=== PATIENT | male | born 1975 | race Caucasian/White ===

== ENCOUNTER 2017-11-22 21:29 | Emergency (ER) | payer BC ==
[~2017-11-22] VITALS: Ht 182.9 cm; Wt 126.9 kg
[~2017-11-22 21:29] MED LIST: GAS-X; ZFRODT4 SL; [UNRECOGNIZED DRUG - OTHER]
[2017-11-22 21:36] VITALS: TEMP 37.3; Ht 182.9 cm; Wt 126.9 kg
[2017-11-22] MEDS ORDERED: ONDANSETRON INJ 2 MG/ML 2 ML VIAL IV STA (21:51)
[2017-11-22] MEDS ORDERED: FAMOTIDINE 20MG/5ML IV PUSH IV STA (21:51)
[2017-11-22] MEDS ORDERED: SODIUM CHLORIDE 0.9% 1000ML 2,000 ML IV STA (21:51)
[2017-11-22] MEDS ORDERED: MoRPHine SULFATE 4 MG/ML 1 ML CARP\\VIAL IV STA (21:51)
[2017-11-22] MEDS ORDERED: HYG/25 PO (22:03)
[2017-11-22 22:19] LABS: BASO % 0.2 %; BASO ABS # 0.02 K/uL (0-0.2); COMPLETE YES; HEMATOCRIT 48.2 % (42-52); IG% 0.4 %; LYMPH % 7.8 %; LYMPH ABS # 0.73 K/uL (1.2-3.4); MEAN CELL VOLUME 89.8 fL (80-100); MEAN CORPUSCULAR HEMOGLOBIN 33.1 pg (25-34); MEAN CORPUSCULAR HGB CONC 36.9 g/dl (32-36); MEAN PLATELET VOLUME 11.5 fL (7.4-10.4); MONO % 5.9 %; NEUT % 85.7 %; PLATELET COUNT 148 K/uL (130-400); RED BLOOD COUNT 5.37 M/uL (4.7-6.1); WHITE BLOOD COUNT 9.34 K/uL (4.8-10.8)
[2017-11-22 22:52] LABS: BUN/CREATININE RATIO 17.1 (10-20); CALCIUM 8.2 mg/dl (8.5-10.1); CREATININE 1.31 mg/dl (0.60-1.40); POTASSIUM 2.9 mmol/L (3.5-5.1)
[2017-11-22] MEDS ORDERED: POTASSIUM CHLORIDE 10 MEQ TABCR PO STA (22:59)
[2017-11-22] MEDS ORDERED: ONDANSETRON HOME PACK 4MG OD TAB PO ONE (23:00)
[2017-11-22] MEDS ORDERED: EMPTY 8 DRAM VIAL ONE (23:05)
[2017-11-22] MEDS ORDERED: ONDA4TAB10 SL (23:10)
--- NOTE | 2017-11-22 23:11 | EMERGENCY ROOM VISIT NOTE ---
ED Visit Note First contact with patient: 21:42 CHIEF COMPLAINT: Vomiting and diarrhea 26 hours HISTORY OF PRESENT ILLNESS: Patient is a 42-year-old white male who presents to the emergency department accompanied by his girlfriend for evaluation of a vomiting and diarrheal illness that started 24 hours ago. Patient reports that his 7-year-old daughter became ill first with vomiting and diarrhea on 11/20. Her symptoms lasted about 24 hours. He reports that he developed similar symptoms around 8 PM last evening. He developed a fairly forceful, repetitive vomiting and diarrhea. At one point he reports that he was vomiting every 15 minutes. Vomiting has tapered off slightly, he is still nauseous and has dry heaves on occasion. Diarrhea is loose and watery, now is more gas and just mucus. He notes a stabbing supraumbilical abdominal pain, at the site of where he had a hernia repair 2, and generalized diffuse abdominal discomfort and bloating. He rates his discomfort and 8/10. He was only able to drink one bottle of Gatorade today. Girlfriend states that he tried to drink fluids, but then vomited them back up. He denies any recent antibiotic use, foreign travel , unusual food or water consumption or foodhandling activities. He has well water as a source at home. He denies melena, hematochezia or hematemesis. He denies urinary symptoms. He did not check his temperature with a thermometer. He reports that he feels dehydrated. REVIEW OF SYSTEMS: Review of systems as per HPI. All other systems reviewed were negative. 10 systems reviewed. PMH: Electronic medical records are reviewed and summarized as above/below. See Problem List. SOCIAL HISTORY: Patient lives at home with his girlfriend and children. Employed as a teacher. Nonsmoker, denies alcohol use.. PHYSICAL EXAM: Vital Signs: Reviewed Nurse's notes. CONSTITUTIONAL: Patient is an ill, uncomfortable appearing 42-year-old white male who is awake and alert and in mild distress due to his stated complaint. He is noted to be tachycardic in triage. EYES: Pupils equal, round, reactive to light and accommodation. EOMs intact without nystagmus. Sclera are anicteric. ENT: Tympanic membranes intact, with normal landmarks. External canals are clear. Oral and nasopharynx are clear. Mucous membranes are dry, no lesions, tongue and gums appear normal. NECK: No bruits auscultated. Supple without lymphadenopathy. No thyromegaly. No meningeal signs. Full active range of motion without discomfort. CARDIOVASCULAR: Tachycardic rate and rhythm, with normal S1 and S2, no murmur or gallop or rub is heard. No carotid bruits auscultated. No JVD. Peripheral pulses easily palpable. RESPIRATORY: Breath sounds equal and clear to auscultation without wheezes, rales, or rhonchi heard. Full and equal chest expansion without accessory muscle use or retractions. ABDOMEN: Bowel sounds are present. Well-healed supraumbilical surgical incision noted. Abdomen is soft, nondistended, mildly tender in the epigastric region, without guarding, rebound or rigidity. There is no localized pain in the right lower quadrant. No palpable masses or hernia noted. INTEGUMENTARY: No lesions or rash, normal skin turgor. LYMPH: No lymphadenopathy. EMERGENCY DEPARTMENT COURSE: The patient was seen and evaluated as above. Old records were reviewed. IV lock was initiated and laboratory studies were collected. He was medicated with Zofran 4 mg IV, morphine 4 mg IV and Pepcid 20 mg IV. He was given a 2 L bolus of normal saline solution. Urine sample was collected, dipped and was clear. Laboratory studies noted a normal white count. Electrolytes noted sodium 136, potassium low at 2.9, chloride 101, convex and 25, BUN and creatinine 22 and 1.3. Transaminases are not elevated. Lipase is normal. The patient was reassessed. The first liter of IV fluid was almost completed, and a second liter was hung. He reported good relief of his pain with the IV medications, states that he was actually able to follow sleep for a little bit. He was tolerating ice chips. His tachycardia had improved slightly and he was in the 110s. He rested comfortably, and had no further vomiting or diarrhea in the emergency department. Laboratory studies were reviewed with the patient. He is noted to be hypokalemic with a potassium of 2.9. I feel that he is a good candidate for oral replacement, he was given 40 mEq in the emergency department prior to discharge, and an additional dose of 40 mEq to take tomorrow morning. He was also encouraged to eat potassium rich foods for the next couple of days, until he resumes a normal diet. I suspect the patient's illness is viral in nature, as his daughter was ill with very similar symptoms just 24 hours prior. He has a benign abdominal exam and is afebrile. Conservative care measures were discussed. He was encouraged to follow a clear liquid diet, and advance as tolerated. He was welcome to return to the emergency department for worsening symptoms, otherwise can follow up with his primary care provider as an outpatient for recheck this week. Differential diagnoses also entertained included infectious versus inflammatory colitis/enteritis, food borne illness, bowel obstruction, GERD, gastritis, esophagitis, pancreatitis, acute cholecystitis, among others. Medication reconciliation: I attest that I have personally reviewed the patient' s current medication list. Blood pressure screening : Patient was found to have normal blood pressure on screening and does not require follow-up. Problem List Medical Problems: (1) Hypertension Nos Status: Chronic Surgical Problems: (1) History of hernia repair Status: Resolved Current/Historical Medications Scheduled Chlorthalidone (Hygroton), 25 MG PO DAILY Allergies Coded Allergies: No Known Allergies (Unverified , 11/22/17) Vital Signs Date Time Temp Pulse Resp B/P (MAP) Pulse Ox O2 Delivery O2 Flow Rate FiO2 11/22/17 22:53 109 18 114/66 93 Room Air 11/22/17 21:36 37.3 131 18 139/88 94 Room Air Laboratory Results 11/22/17 22:05 Red Blood Count 5.37, Mean Corpuscular Volume 89.8, Mean Corpuscular Hemoglobin 33.1, Mean Corpuscular Hemoglobin Concent 36.9, Mean Platelet Volume 11.5, Neutrophils (%) (Auto) 85.7, Lymphocytes (%) (Auto) 7.8, Monocytes (%) (Auto) 5.9, Eosinophils (%) (Auto) 0.0, Basophils (%) (Auto) 0.2, Neutrophils # (Auto) 8.00, Lymphocytes # (Auto) 0.73, Monocytes # (Auto) 0.55, Eosinophils # (Auto) 0.00, Basophils # (Auto) 0.02 11/22/17 22:05 Test 11/22/17 22:05 White Blood Count 9.34 K/uL (4.8-10.8) Red Blood Count 5.37 M/uL (4.7-6.1) Hemoglobin 17.8 g/dL (14.0-18.0) Hematocrit 48.2 % (42-52) Mean Corpuscular Volume 89.8 fL (80-100) Mean Corpuscular Hemoglobin 33.1 pg (25-34) Mean Corpuscular Hemoglobin Concent 36.9 g/dl (32-36) Platelet Count 148 K/uL (130-400) Mean Platelet Volume 11.5 fL (7.4-10.4) Neutrophils (%) (Auto) 85.7 % Lymphocytes (%) (Auto) 7.8 % Monocytes (%) (Auto) 5.9 % Eosinophils (%) (Auto) 0.0 % Basophils (%) (Auto) 0.2 % Neutrophils # (Auto) 8.00 K/uL (1.4-6.5) Lymphocytes # (Auto) 0.73 K/uL (1.2-3.4) Monocytes # (Auto) 0.55 K/uL (0.11-0.59) Eosinophils # (Auto) 0.00 K/uL (0-0.5) Basophils # (Auto) 0.02 K/uL (0-0.2) RDW Standard Deviation 46.5 fL (36.4-46.3) RDW Coefficient of Variation 14.2 % (11.5-14.5) Immature Granulocyte % (Auto) 0.4 % Immature Granulocyte # (Auto) 0.04 K/uL (0.00-0.02) Anion Gap 10.0 mmol/L (3-11) Est Creatinine Clear Calc Drug Dose 101.1 ml/min Estimated GFR () 77.3 Estimated GFR (Non- 66.7 BUN/Creatinine Ratio 17.1 (10-20) Calcium Level 8.2 mg/dl (8.5-10.1) Total Bilirubin 0.8 mg/dl (0.2-1) Aspartate Amino Transf (AST/SGOT) 43 U/L (15-37) Alanine Aminotransferase (ALT/SGPT) 61 U/L (12-78) Alkaline Phosphatase 41 U/L (45-117) Total Protein 7.5 gm/dl (6.4-8.2) Albumin 3.8 gm/dl (3.4-5.0) Globulin 3.7 gm/dl (2.5-4.0) Albumin/Globulin Ratio 1.0 (0.9-2) Lipase 93 U/L (73-393) Chemistry Specimen Hemolysis Medications Administered Medications (Trade) Dose Ordered Sig/Skylar Route Start Time Stop Time Status Last Admin Dose Admin Sodium Chloride 2,000 ml @ 999 mls/hr Q2H1M STAT IV 11/22/17 21:51 11/22/17 23:51 11/22/17 22:07 999 MLS/HR Ondansetron HCl (Zofran Inj) 4 mg NOW STAT IV 11/22/17 21:51 11/22/17 21:54 DC 11/22/17 22:08 4 MG Famotidine (Pepcid 20mg Iv Push) 20 mg ONE STAT IV 11/22/17 21:51 11/22/17 21:54 DC 11/22/17 22:08 20 MG Morphine Sulfate (MoRPHine SULFATE INJ) 4 mg NOW STAT IV 11/22/17 21:51 11/22/17 21:54 DC 11/22/17 22:08 4 MG Departure Information Impression Primary Impression: Nausea, vomiting and diarrhea Additional Impression: Hypokalemia Prescriptions Ondasetron Odt (ZOFRAN ODT) 4 Mg Tab 4 MG SL Q4 Y for Nausea or Vomiting, #20 TAB Prov: Audelia Gr PA 11/22/17 Referrals Jacinto Rivera M.D.(AMY) (PCP) Patient Instructions My [facility] Additional Instructions DO NOT drive, drink alcohol, operate machinery, or perform dangerous activities today. You were given medications in the ER that can affect your ability to safely function or operate a vehicle. Potassium chloride 10 mEq: Take 40 mEq this evening, repeat 40 mEq tomorrow 1 dose. Zofran(odansetron) tablets 4mg: Take one and allow it to dissolve in your mouth every four to six hours as needed for nausea or vomiting. Acetaminophen(Tylenol) may be used for fever or pain. Use 1000mg every six hours as needed. Avoid using more than 4000mg in a 24 hour period. Rest and drink plenty of fluids as tolerated. Slow sips of water or sports drinks are recommended instead of large amounts all at once. Continue current medications. Once your stomach is settled start with a clear liquid diet (jello, soup broth, etc.) and then advance as tolerated. You should avoid full, heavy meals for about 24 hrs from the time your symptoms resolved. Return to the ER for persistent vomiting, fevers, abdominal pain, chest pains, difficulty breathing, black or bloody stools, worsening of your condition, or as needed. Follow up with your primary physician in 2-3 days for a recheck of your current condition. Problem Qualifiers
[2017-11-22 23:33] VITALS: BP 132/80; PULSE 112; O2SAT 96
== END 2017-11-22 23:33 | disposition home or self-care (01) ==
LOC: C.EDB 21:30 → C.EDA 23:33
DX: R11.2 Nausea with vomiting, unspecified (principal); R19.7 Diarrhea, unspecified; E87.6 Hypokalemia; I10 Essential (primary) hypertension; Z79.899 Other long term (current) drug therapy

== ENCOUNTER 2024-09-20 10:27 | Observation (INO) ==
[2024-09-20 11:07] LABS: Hematocrit (blood only) 50.9 % (42.0-52.0); Hemoglobin 17.7 g/dl (14.0-18.0); Mean Corpuscular Hemoglobin 31.9 pg (25.0-34.0); Mean Corpuscular Hgb Conc 34.8 g/dL (32.0-36.0); Mean Corpuscular Volume 91.9 fL (80.0-100.0); Mean Platelet Volume 11.3 fL (9.4-12.4); Platelet Count 192 K/uL (130-400); RDW Coefficient of Variation 12.7 % (11.5-14.5); RDW Standard Deviation 43.3 fL (36.4-46.3); Red Blood Count 5.54 M/uL (4.70-6.10); White Blood Count 7.54 K/ul (4.8-10.8)
[2024-09-20 11:18] LABS: BUN Creatinine Ratio 19.1 (10-20); Calcium 9.6 mg/dl (8.6-10.3); Creatinine Clr Calc Pharmacy 126.6 ml/min; Potassium 3.8 mmol/L (3.5-5.1)
[2024-09-20 11:53] LABS: INR 0.9 (0.9-1.1); Prothrombin Time 10.2 Seconds (9.0-12.0)
--- NOTE | 2024-09-20 12:26 | History & Physical Bridge Note ---
Date of Service September 20, 2024 History & Physical Bridge Note I have examined the patient, reviewed the History & Physical and in the interval since the performance of the History & Physical I have noted the following changes of clinical significance: no changes noted
--- NOTE | 2024-09-20 12:27 | Pre Anesthesia Assessment ---
Date of Service September 20, 2024 Pre Sedation Assessment Vital Signs Pulse Resp BP Pulse Ox O2 Del Method 09/20/24 10:55 69 14 159/88 H 97 Room Air Cardiovascular RRR, no murmur, no edema + femoral pulses present and + radial pulses present; no JVD no edema Respiratory normal respiratory effort, lungs clear to auscultation Pre-Sedation Airway Assessment Smoking Status: Never smoker Short, Thick Neck: No Thyromental Distance: > or= 3.5 Finger Breadths Oral Cavity: + WNL Mallampati Class: III ASA: ASA3 NPO Status Date of Last Intake of Fluids: 09/20/24 Time of Last Intake of Fluids: 06:00 Date of Last Intake of Solid Food: 09/19/24 Time of Last Intake of Solid Foods: 10:00 Procedure Planning Contraindications for Sedation: none Current Medications Reviewed: Yes Notes The planned sedation has been discussed with the patient. Informed Consent was obtained. I have identified the patient, determined the appropriateness of sedation and have assessed the patient immediately prior to the procedure. All medicine(s) and interventions are by my order.
[2024-09-20] MEDS: NITROGLYCERIN/D5W 100MCG/ML 20ML SYR ONE (13:08)
[2024-09-20] MEDS: MIDAZOLAM HCL 1 MG/ML 2ML VIAL ONE ×3 (13:09→14:18)
--- NOTE | 2024-09-20 13:37 | Cardiac Catheterization ---
Cardiac Cath Procedure Full Procedure Date September 20, 2024 Pre-Procedure Diagnosis Pre-Procedure Diagnosis: Angina AUC Score AUC Score: 8 Post-Procedure Diagnosis Post-Procedure Diagnosis: Severe CAD (Two-vessel) Procedure(s) Performed Procedure(s) Performed: Coronary Angiography District Manager Tremaine Olvera MD Small Business Banking Officer(s) Endy Cornelius Estimated Blood Loss Estimated Blood Loss: <15cc Medication(s) Medication(s): Fentanyl (12.5 mcg IV x 2), Heparin (5000 units IV), Lidocaine 1% (Local infiltration access site), Nicardipine (250 mcg intra-arterial after arterial sheath insertion), Nitroglycerin (200 mcg intra-arterial after sheath insertion) and Versed (1 mg IV x 2) Summary of Findings Impression: Right dominant anatomy with diffuse coronary atherosclerosis. Two-vessel significant coronary artery disease, early mid left anterior descending and distal right coronary artery Procedure: Coronary angiography via right radial access with ultrasonic guidance Catheters: 6 Spanish long glide sheath, 5 Spanish [place], 5 Spanish JL 4 Procedure note near separate origin left anterior descending and left circumflex Coronary angiography: Right dominant anatomy Left main: Very short with near separate origin left tender sending left circumflex Left anterior descending: Large caliber vessel type III in distribution. Gives rise to 3 moderate caliber diagonal branches and 2 large septal branches. There is diffuse coronary atherosclerotic changes of moderate irregularities throughout the vessel. There is a discrete 90% stenosis after the first diagonal branch and prior to the large first septal branch. Left circumflex: Large but nondominant vessel consisting of a large obtuse marginal, multi branching and a moderate-sized posterolateral branch. There is diffuse moderate irregularities within the obtuse marginal of 20% or less with mild ectatic changes Right coronary artery: Dominant in distribution. Gives rise to 2 large right ventricular branches a moderate caliber posterior sending artery and 2 posterior ventricular branches along the AV groove. Within the right coronary there is diffuse luminal irregularities with a discrete 80% stenosis in the distal vessel prior to the AV groove. Hemodynamics Rest Ao:: 127/94/108 Final Ao: 129/92/110 LV: N/A Recommendations Recommendations: PCI without planned CABG Radiation Exposure (mGy) 1033 Contrast (mls) 75 Anesthesia Start time: 1242, stop time: 1313 Procedural Complication(s) None Disposition PCI same setting I attest to the content of the Intraoperative Record and any orders documented therein. Any exceptions are noted below. ACC Data: Electronic Tester Cardiac Status Clinical evaluation leading to the procedure 49-year-old male with multiple cardiovascular risk factors with recent symptoms consistent with exertional angina. Coronary CTA notable for left anterior descending and distal right coronary disease CAD Presenation: Stable angina Anginal Classification: CCS III Cardiogenic Shock within 24 Hours: No Cardiac Arrest within 24 Hours: No Imaging Studies Past 6 Months: Yes Stress Studies Past 6 Months: No Standard Exercise Test: No Stress Echocardiogram: No Stress Testing w/SPECT MPI: No Cardiac CTA: Yes - 2VD Coronary Anatomy Dominant: Right Left Main (% Stenosis): Normal (Very short with narrow separate origin left anterior descending left circumflex) LAD (% Stenosis): Proximal (Mild calcification and moderate irregularities) and Mid (90) D1 (% Stenosis): Mid (Mild irregularities, bifurcating small vessel) D2 (% Stenosis): Mid (Moderate irregularities, bifurcating moderate-sized vessel) D3 (% Stenosis): Normal Circumflex (% Stenosis): Proximal (20) OM1 (% Stenosis): Proximal (20) and Mid (Moderate irregularities with a large multi branching vessel) L PL1 (% Stenosis): Normal RCA (% Stenosis): Mid (Moderate diffuse atherosclerotic irregularities) and Distal (80) Left Ventricular Angiography EF (%): N/A Diagnostic Physicians Name: Tremaine Olvera MD Status: Urgent Closure Device Percutaneous Entry Location: Radial Recommendations: PCI without planned CABG
--- NOTE | 2024-09-20 13:37 | Cardiac Catheterization ---
Cardiac Cath Procedure Brief Procedure Date September 20, 2024 Pre-Procedure Diagnosis Pre-Procedure Diagnosis: Angina AUC Score AUC Score: 8 Post-Procedure Diagnosis Post-Procedure Diagnosis: Severe CAD (Two-vessel) Procedure(s) Performed Procedure(s) Performed: Coronary Angiography Airline Stewardess Tremaine Olvera MD Auto Locator(s) Endy Cornelius Estimated Blood Loss Estimated Blood Loss: <15cc Medication(s) Medication(s): Fentanyl (12.5 mcg IV x 2), Heparin (5000 units IV), Lidocaine 1% (Local infiltration access site), Nicardipine (250 mcg intra-arterial after arterial sheath insertion), Nitroglycerin (200 mcg intra-arterial after sheath insertion) and Versed (1 mg IV x 2) Preliminary Findings Impression: Two-vessel coronary artery disease Procedure: Coronary angiography via right radial access with ultrasonic guidance Catheters: 6 [place] long glide sheath, 5 [place], 5 [place]er JL 4 Procedure note near separate origin left anterior descending and left circumflex Recommendations Recommendations: PCI without planned CABG Anesthesia Start time: 1242, stop time: 1313 Procedural Complication(s) None Disposition PCI same setting
[2024-09-20] MEDS: HEPARIN (PORCINE) 1000 UNIT/ML 10 ML (CATH LAB USE ONLY) ONE ×2 (14:15→14:19)
[2024-09-20] MEDS: fentaNYL citrate PF 100 MCG/2 ML VIAL ONE ×2 (14:15→14:18)
[2024-09-20] MEDS: OPTIRAY 350 ONE (14:16)
[2024-09-20] MEDS: niCARdipine HCL INJ 2.5 MG/ML 10 ML AMP ONE (14:18)
[2024-09-20] MEDS: CLOPIDOGREL BISULFATE 300 MG TAB ONE (14:19)
--- NOTE | 2024-09-20 14:35 | Post Operative Brief Note ---
Cardiology Brief Post Op Date of Surgery September 20, 2024 Pre & Post Diagnosis Coronary artery disease Procedure PCI to proximal to mid LAD with single ELAYNE (4.0 x 18 mm [place]; postdilated with 4.5 NC). PCI to distal RCA with single ELAYNE (2.5 x 30 mm [place]; postdilated with 3.0 NC) Maintainability Engineer Miguel Devine MD [place] Ashli Estimated Blood Loss 25 Findings Consistent with Post-Op Diagnosis 90% mid LAD, diffuse 70% distal RCA. Complications none Disposition Accompanied Patient To Recovery: Yes Disposition: PCU
--- NOTE | 2024-09-20 15:01 | History & Physical Report ---
Date of Service September 20, 2024 Assessment & Plan (1) CAD (coronary artery disease): (2) S/P cardiac catheterization: Plan: Patient is 49 year old male with PMH HTN, hypertriglyceridemia, BALDO presented for planned cardiac catheterization today as was having exertional CP and had abnormal cardiac CT yesterday. Is S/P cardiac cath and ELAYNE to LAD and ELAYNE to distal RCA today. Doing well post op Monitor on telemetry Cardiology on board Continue aspirin, metoprolol succinate, losartan, atorvastatin CBC, BMP in am (3) HTN (hypertension): Plan: Continue losartan, chlorthalidone, metoprolol succinate (4) Hypertriglyceridemia: Plan: 11/2023: Total cholesterol: 230, LDL: 91, HDL: 30, Triglycerides: 547. 02/2024: total cholesterol: 199, LDL: 141, HDL: 37, Triglycerides: 105 Continue atorvastatin (5) BALDO (obstructive sleep apnea): Plan: Patient reports lost 50 pounds and not using CPAP any more DVT Prophylaxis Ambulate Admitted PCU Follows with Dr Swan for routine care Pt was seen and care coordinated with . See addendum I spent a total of 75 minutes reviewing notes, outpatient records, labs, medication, coordinating, documenting and providing care for this patient excluding time spent in the performance of separately billed services. Admission and Anticipated Discharge Date Admission Date: September 20, 2024 History of Present Illness Chief Complaint: S/P cardiac cath Primary Care Provider: Dr Kaz Swan Patient is 49 year old male with PMH HTN, hypertriglyceridemia, BALDO presented for planned cardiac catheterization today as was having exertional CP and had abnormal cardiac CT yesterday. Is S/P cardiac cath and ELAYNE to LAD and ELAYNE to distal RCA today. Post op patient reports is feeling well. Denies CP, SOB, N/V/D, fever/chills, diaphoresis, SOSA, dizziness, syncope, palpitations, cough, sore throat, abdominal pain, paresthesias, weakness, extremity edema, rashes, urinary symptoms. Per outpatient chart review: 09/19/24: Cardiac CT Findings are consistent with CAD-RADS category 4A (Severe 70% - 99% stenosis in one or two vessels). 09/19/24: Echo: EF: 55-59%, normal LV wall motion A1c: 7.3 in 11/2023 and he changed his diet and lost 50 pounds and in 02/2024 A1c of 5.4. Allergies Allergy/AdvReac Type Severity Reaction Status Date / Time No Known Allergies Allergy Unknown Verified 09/20/24 11:14 Home Medications Medication Instructions Recorded Confirmed Type aspirin 81 mg chewable tablet 81 mg PO DAILY 09/20/24 09/20/24 History atorvastatin 40 mg tablet 40 mg PO DAILY 09/20/24 09/20/24 History chlorthalidone 25 mg tablet 25 mg PO DAILY 09/20/24 09/20/24 History losartan 50 mg tablet 50 mg PO DAILY 09/20/24 09/20/24 History metoprolol succinate 25 mg 12.5 mg PO DAILY 09/20/24 09/20/24 History tablet,extended release 24 hr Past Med/Surg History Problem List S/P cardiac catheterization BALDO (obstructive sleep apnea) Hypertriglyceridemia CAD (coronary artery disease) HTN (hypertension) Knee osteoarthritis Right knee injury Surgical History History of vasectomy History of hernia repair Family History Son Asthma Grandfather (Maternal) Diabetes Social History Smoking Status: Never smoker Hx Alcohol Use: No Hx Substance Use: No Preferred Language: Danish Communication Ability: Effective Artificial Flowers Supervisor Required: No Current Living Situation: Spouse Feels Safe at Home: Yes Safety Concerns: Feels Safe At This Time Review of Systems Review of Systems: All systems reviewed & are unremarkable except as noted in HPI & below Physical Exam Physical Exam: General: no distress, WDWN Head: normocephalic, atraumatic Eyes: conjunctiva non-injected, anicteric ENT: normal inspection external ears, nose, mucous membranes moist Neck: supple, trachea midline Lungs: clear, no respiratory distress, no wheezing/rhonchi/rales CV: RRR, no murmur, no pretibial edema Abd: normal BS, soft, non-tender Ext: no cyanosis, no calf tenderness Neuro: A&O x 3, no focal deficits noted, normal affect Skin: warm, dry Results & Data Results & Data Vital Signs (Past 12 Hours) Vital Signs Pulse Resp BP Pulse Ox O2 Del Method 09/20/24 14:20 78 132/80 96 Room Air 09/20/24 10:55 69 14 159/88 H 97 Room Air Laboratory Results Short CBC 09/20/24 Range/Units 10:23 WBC 7.54 (4.8-10.8) K/ul Hgb 17.7 (14.0-18.0) g/dl Hct 50.9 (42.0-52.0) % Plt Count 192 (130-400) K/uL BMP 09/20/24 10:23 Sodium 139 Potassium 3.8 Chloride 104 Carbon Dioxide 29 BUN 17 Creatinine 0.89 Glucose 125 H Calcium 9.6 ECG Additional Comments: EKG normal sinus rhythm, nonspecific T wave changes per my interpretation Code Status & VTE Plan VTE Prophylaxis Plan VTE Prophylaxis will be ordered: No Reason for no VTE drug order: Treatment not indicated Supervising Physician Co-Signing Physician Notes Attending addendum: The patient was seen and examined in telemetry unit He is a status post cardiac cath with stent placement in LAD and RCA Has some right wrist pain at the site of arterial puncture Denies any chest pain, palpitation or shortness of breath On examination Lying in bed without any apparent distress Remains hemodynamically stable Chestclear to auscultate bilaterally HeartS1-S2, regular Abdomenbenign Extremitiesno edema bilaterally His admission labs, EKG and imaging studies reviewed Typical angina symptoms followed by CTA suggestive of CAD and is status post cardiac catheterization today ELAYNE in LAD and RCA Appreciate cardiology input and recommendation Other significant medical condition remained stable Agree with assessment and plan as outlined above by Kiana De La Cruz PA-C and take the full responsibility of the care Dr Karri Gamez
--- NOTE | 2024-09-20 17:10 | Communication Note ---
Date of Service: September 20, 2024 49-year-old male with underlying cardiovascular risk factors of family history, hypertension, low HDL dyslipidemia, hyperglycemia Referred for coronary CTA after presenting with symptoms consistent with exertional angina. Abnormal study noted and patient referred today for coronary angiography Study demonstrates diffuse moderate coronary atherosclerosis with significant two-vessel coronary artery disease, 90% mid left anterior descending after first diagonal and 70-80% distal right coronary stenosis. Patient underwent drug-eluting stent to both areas with good result Post procedure doing well without complaint. Right radial access site healing well Discussed in detail with patient Plan dual antiplatelet therapy with aspirin and clopidogrel Aggressive lipid reduction, risk factor modification. Goal LDL less than 70 preferably less than 55 Continue to treat hypertension with combination therapy, chlorthalidone,Losartan and low-dose beta-rajinder with metoprolol succinate 12.5 mg daily Will observe overnight possible discharge early a.m. tomorrow
--- NOTE | 2024-09-20 17:32 | Cardiac Catheterization ---
[facility] Data: Solar Sales Advisor Cardiac Status Clinical evaluation leading to the procedure CAD Presenation: Unstable angina Anginal Classification: CCS III Diagnostic Physicians Name: Miguel Devine MD Closure Device Recommendations: PCI without planned CABG Cardiac Cath Procedure Full Procedure Date September 20, 2024 Pre-Procedure Diagnosis Pre-Procedure Diagnosis: Angina AUC Score AUC Score: 8 Post-Procedure Diagnosis Post-Procedure Diagnosis: Severe CAD (Two-vessel) and Successful PCI Procedure(s) Performed Procedure(s) Performed: Coronary Angiography, Left Heart Cath, Drug Eluting Stent and IVUS Vibration Analyst Miguel Devine MD Estimated Blood Loss Estimated Blood Loss: 25 Medication(s) Medication(s): Clopidogrel, Fentanyl (12.5 mcg IV x 2), Heparin (5000 units IV), Nicardipine (250 mcg intra-arterial after arterial sheath insertion), Nitroglycerin (200 mcg intra-arterial after sheath insertion) and Versed (1 mg IV x 2) Summary of Findings Indication: Accelerating exertional angina, abnormal cardiac CTA Access: 6 Fr right radial artery Catheters: EBU 3.5 guide, JR4 guide Findings: For full details of patient's coronary angiography please see cath report dictated by Dr. Olvera. Briefly, patient found to have severe two-vessel coronary artery disease with 90% mid LAD, diffuse Distal RCA up to 80%. Decision to proceed with PCI. -- PCI -- Antithrombotic therapy: Heparin, clopidogrel Procedure: Left main cannulated with EBU 3.5 guide Pre-procedure flow ANNE MARIE 2 [place] blue wire passed across lesion into distal vessel Mid LAD lesion predilated with 3.0 compliant balloon [place] IVUS catheter placed to mid LAD. Pullback revealed severe, calcified mid LAD disease extending to takeoff of D1. Minimal proximal LAD extending back to almost separate ostium. Dilated lesion stented with 4.0 x 18 mm Stent post-dilated with 4.5 noncompliant balloon Repeat IVUS showed well apposed, well-expanded stent with no apparent edge complications. IC vasodilators administered for spasm Post procedure ANNE MARIE 3 flow, stent well expanded with minimal residual stenosis and no apparent cardiac complications. RCA cannulated with JR4 guide Interactive Digital Media Specialist 50 wire navigated across distal RCA disease into right PLB Distal RCA dilated with 2.5 balloon Distal RCA stented with 2.5 x 30 mm Robin drug-eluting stent extending to takeoff of PDA. Stent postdilated with 3.0 NC IC vasodilators administered for spasm Post procedure ANNE MARIE III flow with no significant residual stenosis and no apparent cardiac complications. Arterial Closure: TR band Summary: 1. Successful PCI of mid LAD with single drug-eluting stent (4.0 x 18 mm Robin; postdilated with 4.5 NC). 2. Successful PCI of distal RCA with single drug-eluting stent (2.5 x 30 mm [place]; postdilated with 3.0 NC). Recommendations: To PCU for continued monitoring Loaded with clopidogrel 600 mg in Solar Sales Advisor Continue dual-antiplatelet therapy for at least 6 months Continue statin, and ASCVD risk factor modification Consult cardiac Rehab Hemodynamics Rest Ao:: 126/84/105 Final Ao: 129/89/100 LV: 128/23 Recommendations Recommendations: PCI without planned CABG Specimens Specimens: None Radiation Exposure (mGy) 4511 Contrast (mls) 285 Anesthesia Start time: 1315 stop time: 1410 Procedural Complication(s) None Disposition PCU I attest to the content of the Intraoperative Record and any orders documented therein. Any exceptions are noted below. LizticG Card Cath Procedure Codes Cardiac Catheterization Procedure 1: Cardiovascular Cath Procedures: 71359 Left Heart Cath (+/-LV) Therapeutic Services & Ancillary Procedure 1: Cardiovascular Tx and Anc Procedures: 11102 IV Ultrasound (Coronary or Graft) Moderate Sedation Procedure 1: Sedation/Anesthesia: 81055 Mod Sedation by the same physician; Ea [id number] Minutes Stenting Procedure 1: Cardiovascular Stent Procedures: 30541 Perc transcatheter placement of intracoronary stent(s), with ang Procedure 2: Cardiovascular Stent Procedures: 99489 Ea addl branch of a major coronary artery PG Care Time/CCT Total # of Minutes Spent Total Time Spent with Patient: Total time spent is greater than 50% in coordination of care (as documented) at patient's floor/unit and/or counseling patient:
[2024-09-20] MEDS ORDERED: ACETAMINOPHEN 500 MG TAB PO PRN (17:57)
[2024-09-20] MEDS ORDERED: hydrALAZINE HCL 20 MG/ML VIAL IV PRN (18:09)
[2024-09-20] MEDS: LOSARTAN POTASSIUM 25 MG TAB PO ONE (19:06)
--- NOTE | 2024-09-20 20:16 | Electrocardiogram Report ---
Test Reason : Blood Pressure : */* mmHG Vent. Rate : 69 BPM Atrial Rate : 69 BPM P-R Int : 158 ms QRS Dur : 96 ms QT Int : 394 ms P-R-T Axes : 71 58 24 degrees QTcB Int : 422 ms Normal sinus rhythm Normal ECG No previous ECGs available Confirmed by Golden Villa ([id number]) on 09/20/2024 8:16:09 PM Referred By: Jah Reynaga Confirmed By: Golden Villa
--- NOTE | 2024-09-20 20:17 | Electrocardiogram Report ---
Test Reason : Blood Pressure : */* mmHG Vent. Rate : 69 BPM Atrial Rate : 69 BPM P-R Int : 168 ms QRS Dur : 98 ms QT Int : 400 ms P-R-T Axes : 55 36 8 degrees QTcB Int : 428 ms Normal sinus rhythm Nonspecific T wave abnormality Abnormal ECG When compared with ECG of 20-Sep-2024 10:16, Nonspecific T wave abnormality is now Present Confirmed by Golden Villa ([id number]) on 09/20/2024 8:16:48 PM Referred By: Jah Reynaga Confirmed By: Golden Villa
[2024-09-21 07:33] LABS: BUN Creatinine Ratio 15.1 (10-20); Calcium 9.2 mg/dl (8.6-10.3)
[2024-09-21 07:34] VITALS: BP 154/80; RESP 18; TEMP 97.7; O2SAT 95
[2024-09-21 07:46] LABS: Basophils # (auto) 0.09 K/uL (0.00-0.20); Basophils % (auto) 0.9 %; Eosinophils # (auto) 0.14 K/uL (0.00-0.50); Eosinophils % (auto) 1.5 %; Hematocrit (blood only) 47.6 % (42.0-52.0); Hemoglobin 16.8 g/dl (14.0-18.0); Immature Granulocytes # (auto) 0.05 K/uL (0.01-0.20); Immature Granulocytes % (auto) 0.5 %; Lymphocytes % (auto) 26.2 %; Mean Corpuscular Hemoglobin 32.1 pg (25.0-34.0); Mean Corpuscular Hgb Conc 35.3 g/dL (32.0-36.0); Mean Platelet Volume 11.5 fL (9.4-12.4); Monocytes # (auto) 0.86 K/uL (0.11-0.59); Neutrophils # (auto) 5.91 K/uL (1.40-6.50); Neutrophils % (auto) 61.9 %; Platelet Count 191 K/uL (130-400); RDW Coefficient of Variation 12.7 % (11.5-14.5); RDW Standard Deviation 42.6 fL (36.4-46.3); Red Blood Count 5.23 M/uL (4.70-6.10); White Blood Count 9.55 K/ul (4.8-10.8)
[2024-09-21] MEDS: ASPIRIN 81 MG ECTAB PO SCH (08:00)
[2024-09-21] MEDS: METOPROLOL SUCC 25MG EXT REL TAB PO SCH (08:00)
[2024-09-21] MEDS: ATORVASTATIN 40 MG TAB PO SCH (08:00)
[2024-09-21] MEDS: CHLORTHALIDONE 25 MG TAB PO SCH (08:00)
[2024-09-21] MEDS: LOSARTAN POTASSIUM 50 MG TAB PO SCH (08:00)
[2024-09-21] MEDS: CLOPIDOGREL BISULFATE 75 MG TAB PO SCH (08:01)
[2024-09-21 09:13] VITALS: PULSE 70
--- NOTE | 2024-09-21 09:24 | Cardiology Progress Note ---
Date of Service September 21, 2024 Assessment & Plan (1) Two-vessel coronary artery disease: (2) Coronary artery disease with exertional angina: (3) Dyslipidemia (high LDL; low HDL): (4) HTN (hypertension): Plan Patient referred for evaluation after presenting with symptoms consistent with exertional angina. Coronary CTA reflective of two-vessel coronary artery disease Coronary angiography demonstrated high-grade stenosis mid left anterior descending and distal right coronary artery. Patient received drug-eluting stents to both sites Doing well post procedure Medications optimized with further adjustments planned post hospital discharge Stable for release today No strenuous activities for 3 days Cardiology appointment 2 to 4 weeks Discussed cardiac rehab which patient declines initially Admission and Anticipated Discharge Date Admission Date: September 20, 2024 Subjective Patient seen and personally examined, chart, medications, telemetry reviewed. No chest pains or discomfort overnight. No bleeding issues at right radial access site. No arrhythmias on telemetry. Ambulatory in room without difficulty Review of Systems Review of Systems: All systems reviewed & are unremarkable except as noted in Subjective Physical Exam Constitutional: WD/WN, vitals as above Eyes: PERRL, conjunctivae normal, anicteric sclerae Neck: trachea midline, no thyromegaly Respiratory: normal respiratory effort, lungs clear to auscultation Cardiovascular: RRR, no murmur, no edema Vessels: femoral pulses present and radial pulses present (Right radial access site healing well); no JVD Extremities: no edema Gastrointestinal (Abdomen): normal bowel sounds, soft, nontender, no hepatosplenomegaly Results & Data Vital Signs (Past 12 Hours) Vital Signs Temp Pulse Pulse Pulse Resp BP Pulse Ox 09/21/24 09:12 36.5 C 70 75 18 154/80 H 95 09/21/24 07:31 36.5 C 75 18 154/80 H 95 09/21/24 03:17 36.4 C L 70 20 144/84 H 97 09/20/24 23:24 36.7 C 77 20 150/75 H 96 09/20/24 22:13 70 O2 Del Method 09/21/24 09:12 09/21/24 07:31 Room Air 09/21/24 03:17 Room Air 09/20/24 23:24 Room Air 09/20/24 22:13 Laboratory Results Laboratory Results - last 24 hr 09/20/24 09/20/24 09/20/24 10:23 13:33 13:50 WBC 7.54 RBC 5.54 Hgb 17.7 Hct 50.9 MCV 91.9 MCH 31.9 MCHC 34.8 RDW Std Deviation 43.3 RDW Coeff of Gertrude 12.7 Plt Count 192 MPV 11.3 Immature Gran % (Auto) Neut % (Auto) Lymph % (Auto) [place] % (Auto) Eos % (Auto) Baso % (Auto) Neut # (Auto) Lymph # (Auto) [place] # (Auto) Eos # (Auto) Baso # (Auto) Immature Gran # (Auto) PT 10.2 INR 0.9 Activ Coag Time Kaolin 232 H 226 H Sodium 139 Potassium 3.8 Chloride 104 Carbon Dioxide 29 Anion Gap 6 BUN 17 Creatinine 0.89 Est Cr Clr Drug Dosing 126.6 eGFR 105.05 BUN/Creatinine Ratio 19.1 Glucose 125 H Calcium 9.6 09/20/24 09/21/24 14:08 06:17 WBC 9.55 RBC 5.23 Hgb 16.8 Hct 47.6 MCV 91.0 MCH 32.1 MCHC 35.3 RDW Std Deviation 42.6 RDW Coeff of Gertrude 12.7 Plt Count 191 MPV 11.5 Immature Gran % (Auto) 0.5 Neut % (Auto) 61.9 Lymph % (Auto) 26.2 [place] % (Auto) 9.0 Eos % (Auto) 1.5 Baso % (Auto) 0.9 Neut # (Auto) 5.91 Lymph # (Auto) 2.50 [place] # (Auto) 0.86 H Eos # (Auto) 0.14 Baso # (Auto) 0.09 Immature Gran # (Auto) 0.05 PT INR Activ Coag Time Kaolin 238 H Sodium 140 Potassium 4.0 Chloride 103 Carbon Dioxide 32 Anion Gap 5 BUN 14 Creatinine 0.93 Est Cr Clr Drug Dosing 121.0 eGFR 100.66 BUN/Creatinine Ratio 15.1 Glucose 118 H Calcium 9.2
--- NOTE | 2024-09-21 10:35 | Discharge Summary ---
Date of Service September 21, 2024 Admission HPI Per Admitting Provider Patient is 49 year old male with PMH HTN, hypertriglyceridemia, BALDO presented for planned cardiac catheterization today as was having exertional CP and had abnormal cardiac CT yesterday. Is S/P cardiac cath and ELAYNE to LAD and ELAYNE to distal RCA today. Post op patient reports is feeling well. Denies CP, SOB, N/V/D, fever/chills, diaphoresis, SOSA, dizziness, syncope, palpitations, cough, sore throat, abdominal pain, paresthesias, weakness, extremity edema, rashes, urinary symptoms. Per outpatient chart review: 09/19/24: Cardiac CT Findings are consistent with CAD-RADS category 4A (Severe 70% - 99% stenosis in one or two vessels). 09/19/24: Echo: EF: 55-59%, normal LV wall motion A1c: 7.3 in 11/2023 and he changed his diet and lost 50 pounds and in 02/2024 A1c of 5.4. Admission Exam Per Admitting Provider General: no distress, WDWN Head: normocephalic, atraumatic Eyes: conjunctiva non-injected, anicteric ENT: normal inspection external ears, nose, mucous membranes moist Neck: supple, trachea midline Lungs: clear, no respiratory distress, no wheezing/rhonchi/rales CV: RRR, no murmur, no pretibial edema Abd: normal BS, soft, non-tender Ext: no cyanosis, no calf tenderness Neuro: A&O x 3, no focal deficits noted, normal affect Skin: warm, dry Principal Diagnosis CAD status post stent placement Discharge Exam General: no distress, WDWN Head: normocephalic, atraumatic Eyes: conjunctiva non-injected, anicteric ENT: normal inspection external ears, nose, mucous membranes moist Neck: supple, trachea midline Lungs: clear, no respiratory distress, no wheezing/rhonchi/rales CV: RRR, no murmur, no pretibial edema Abd: normal BS, soft, non-tender Ext: no cyanosis, no calf tenderness Neuro: A&O x 3, no focal deficits noted, normal affect Skin: warm, dry Discharge Data Allergies Allergy/AdvReac Type Severity Reaction Status Date / Time No Known Allergies Allergy Unknown Verified 09/20/24 11:14 Procedures Performed Operation Date: 09/20/24 10:30 Actual Procedures p Cineradiography w/Routine Exam - Tremaine Olvera MD p Cath, Left with Cors and Vent - Tremaine Olvera MD p Drug Eluting Stent SGl Vessel - Miguel Devine MD Ordered Studies 09/20/24 10:24 CL Cath Imgs for PACS use only Routine 09/20/24 14:24 CL IVUS Coronary Single Vessel Routine Hospital Course (1) CAD (coronary artery disease): (2) S/P cardiac catheterization: (3) HTN (hypertension): (4) Hypertriglyceridemia: (5) BALDO (obstructive sleep apnea): Plan Patient is 49 year old male with PMH HTN, hypertriglyceridemia, BALDO presented for planned cardiac catheterization as he was having exertional Chest pain and had abnormal cardiac CT. He underwent cardiac cath with placement of 2 stents in LAD and distal RCA. Patient was observed overnight on telemetry He was started on aspirin and Plavix; no other changes were made to his medication Patient was discharged home with instructions to follow-up with PCP and cardiolo gy. Please note the above document was generated using voice recognition software. It may contain grammatical, syntax or spelling errors. Any formal questions or concerns about the content, text or information contained within the body of this dictation should be directly addressed to the provider for clarification Total Time Total Time Spent Total Time Spent (In Minutes): 35 Total Time Includes: Examination of the Patient, Discharge Planning, Medication Reconciliation, Communication With Other Providers and Other Discharge Plan Discharge Items Patient Disposition: Home - Self-Care Reason For Visit: STATUS POST CORONARY INVENTION Discharge Diagnosis: CAD s/p stent placement Activity: Resume your previous activity Non-emergency contact: Primary Care Provider Call non-emergency contact if: you have any medication questions and your symptoms worsen Follow-up/Referrals: PCP,NO [Primary Care Provider] - Diet: Regular Addtl Attending Provider Instructions: You were admitted to the hospital for the cardiac cath; you had 2 stents placed. Please take your medication as prescribed Pending Studies at Discharge: No Stand-Alone Forms: My [employer], Smoking Cessation Medications and DC Order Prescriptions: New clopidogrel 75 mg Tablet 75 mg PO QAM Qty: 60 0RF Continued atorvastatin 40 mg tablet 40 mg PO DAILY aspirin 81 mg tablet,chewable 81 mg PO DAILY losartan 50 mg tablet 50 mg PO DAILY metoprolol succinate 25 mg tablet extended release 24 hr 12.5 mg PO DAILY chlorthalidone 25 mg tablet 25 mg PO DAILY Discharge Orders: Discharge Order (Routine); Ordered 09/21/24 Ordered By: Phoenix Johnson Admission Data Admit Date/Time: 09/20/24 13:55 Attending Provider: Phoenix Johnson Admit Provider: Tremaine Olvera Primary Care Provider: PCP,NO Other Interventions: Discharge Summary Assessment (RN) Last Done: 09/21/24 09:12
== END 2024-09-21 13:23 | disposition home or self-care (01) ==
LOC: 2S 10:27 → CC 10:27 → SUATTDRO 13:55